=== PATIENT | female | born 1955 | race Caucasian/White ===

== ENCOUNTER → 2016-08-22 | Outpatient (CLI) | payer BC ==
[~2016-08-22] MED LIST: ADVIL200 M1 PO; ALEVE; LIPOFEN150 MG; SYNTHROID; SYNTHROID PO; VITAMIN E400 UNI1 PO; [UNRECOGNIZED DRUG - OTHER] PO
--- NOTE | ~2016-08-22 | MY11 ---
[facility] A Service of [facility] RADIOLOGY TEXT RESULTS PATIENT: AAYUSH VALLE LOCATION: [facility] : 55 UNIT #: [id number] AGE: [address]: Helen Chambers MD SEX: F ORDER DR: [id number] [facility], [place] [address] [id number] MR#: [id number] Acc #: [id number] NAME: AAYUSH VALLE : 1955 SEX: F STUDY DATE/TIME: 08/22/2016 15:10 UNIT: [facility] ROOM: STUDY DESCRIPTION: MY Mammogram Screening Dig Ced Attending Physician: Helen Chambers M.D. Referring Physician: Helen Chambers M.D. Ordering Physician: Helen Chambers M.D. Primary Care Physician: Helen Chambers M.D. MEDICAL IMAGING REPORT This report is preliminary unless electronic signature is present EXAM Digital screening mammogram 08/22/2016. HISTORY A 61-year-old woman, no risk elevation. Previous ultrasound-guided cyst aspiration. Annual screening COMPARISON None FINDINGS Digital imaging of each breast was completed utilizing screening protocol. Review includes FDA approved CAD device. Breast parenchyma is dense with a generalized small nodular parenchymal pattern noted. There is an occasional benign calcification. I see no suspicious mass characteristics and no suspicious microcalcifications. There is no marked architectural deformity. IMPRESSION Benign mammogram. Annual screening recommended. BIRADS II Patients over the age of 40 are entered into a reminder system with target due date for the next mammogram. A result letter will also be sent to the patient. BIRADS: 2 Benign Finding Dictated by... Roge Mejia M.D. THIS IS AN ELECTRONICALLY VERIFIED REPORT [facility] A Service [facility] RADIOLOGY TEXT RESULTS PATIENT: AAYUSH VALLE LOCATION: [facility] : 55 UNIT #: [id number] AGE: [address]: Helen Chambers MD SEX: F ORDER DR: Roge Mejia M.D. at 08/23/2016 8:04 AM [place] TD: 08/22/2016 21:39 JOB #: [id number] MEDICAL IMAGING REPORT Page 1 of 1 COPY
== END | disposition home or self-care (01) ==
LOC: CWCC 14:42
DX: Z12.31 Encounter for screening mammogram for malignant neoplasm of breast (principal); Z98.890 Other specified postprocedural states
CPT/HCPCS: G0202